=== PATIENT | female | born 1955 | race Two or more races ===

== ENCOUNTER 2018-03-16 16:30 | Emergency (ER) | payer MEDICARE, OTHER ==
[~2018-03-16] VITALS: Ht 167.6 cm; Wt 106.6 kg
[2018-03-16 16:59] VITALS: BP 118/74
[2018-03-16] MEDS ORDERED: HYDROCHLOROTHIA25 MG ORAL (17:54)
[2018-03-16 18:10] VITALS: BP 118/74
--- NOTE | 2018-03-16 18:32 | Diagnostic Imaging Report ---
EXAM: XR Chest, 1 View CLINICAL HISTORY: SOB TECHNIQUE: Frontal view of the chest. COMPARISON: No relevant prior studies available. FINDINGS: Lungs: Possible mild right infrahilar infiltrates, versus pulmonary vasculature. Pleural space: Unremarkable. No pneumothorax. Heart: Unremarkable. No cardiomegaly. Mediastinum: Unremarkable. Bones/joints: Unremarkable. IMPRESSION: Possible mild right infrahilar infiltrates, versus pulmonary vasculature.
--- NOTE | 2018-03-16 18:54 | Emergency Room Report ---
History of Present Illness General Chief Complaint: General Complaint Source: Patient Present Illness HPI Patient is a 62-year-old female presented after increased bilateral lower extremity swelling. Patient reports having swelling for approximately the last 3 days. She denies recent travel. She denies any fever. She stated swelling had gradual onset. This had not changed with rest. She denies any shortness of breath. She denied productive cough. The patient reports not currently being smoker. Allergies: Coded Allergies: CODEINE (Verified Allergy, Unknown, 03/16/18) Patient History Past Medical History: see triage record Reviewed Nursing Documentation: PMH: Agreed; PSxH: Agreed Nursing Documentation-PM Past Medical History: No History, Except For Hx Cardiac Problems: No - Sleep apnea Hx Hypertension: No Hx Pacemaker: No Hx Asthma: Yes Hx COPD: Yes Hx Diabetes: No Hx Cancer: No Hx Gastrointestinal Problems: Yes - Hepaitits C Hx Dialysis: No History Of Psychiatric Problem: No Hx Neurological Problems: No Hx Cerebrovascular Accident: No Hx Seizures: No Review of Systems All Other Systems: negative except mentioned in HPI Physical Exam Vital Signs Date Time Temp Pulse Resp B/P (MAP) Pulse Ox O2 Delivery O2 Flow Rate FiO2 03/16/18 16:45 98.1 77 16 114/74 95 Room Air 98.1 General Appearance: well appearing, no apparent distress, alert, GCS 15, obese , Chronically Ill Head: normocephalic, atraumatic ENT: hearing grossly normal, normal voice Neck: full range of motion, supple Respiratory: lungs clear, no respiratory distress, speaking full sentences Cardiovascular #1: regular rate, rhythm, edema - trace edema Gastrointestinal: normal inspection Musculoskeletal: normal inspection, back normal, no calf tenderness Neurologic: normal inspection, alert, oriented x3, responsive, account assistant III-XII nml as tested, motor strength/tone normal, normal gait Psychiatric: mood/affect normal Skin: no rash Medical Decision Making Diagnostic Impression: Primary Impression: Pedal edema ER Course Patient presented for lower extremity edema. Differential diagnosis included was not limited to dependent edema, heat edema, deep venous thrombosis, cellulitis, ankle sprain among others. Patient has a benign exam and does not appear to require any further imaging or laboratory testing at this time. The patient shows no evidence of CHF chest x-ray. The patient noted to have no shortness of breath with supine position. She was given oral Lasix return symptoms treatment. The patient appears to have dependent edema. The patient is given Hydrochlorthiazide. She is advised to follow-up with her primary care physician for further evaluation and treatment.The EKG interpreted by me showed normal sinus rhythm without acute ST or T wave changes with low voltage due to patient's obesity.The patient is advised to follow up with primary care doctor in 1-2 days. Patient is advised to return if any worsening condition or if any changes in status that are concerning. The patient is advised to discontinue diuretic if she began feeling dizzy or lightheaded. This report is dictated with [employer] software which may occasionally lead to discrepancies related to use of this software. EKG Diagnostic Results Rate: normal Rhythm: NSR ST Segments: no acute changes Last Vital Signs Date Time Temp Pulse Resp B/P (MAP) Pulse Ox O2 Delivery O2 Flow Rate FiO2 03/16/18 18:10 98.1 75 16 118/74 97 Room Air 98.1 Status: improved Disposition: HOME, SELF-CARE Condition: Stable Scripts Hydrochlorothiazide* (HYDROCHLOROTHIAZIDE*) 25 Mg Tablet 25 MG ORAL DAILY, #10 TAB Prov: Brennon Garnett MD 03/16/18 Patient Instructions: Edema Brennon Garnett MD Mar 16, 2018 18:54
--- NOTE | 2018-03-18 14:22 | Cardiology Report ---
APPROVED REPORT EKG Measurement Heart [id number] Sinus bradycardia Possible Inferior infarct, age undetermined Anterior infarct, age undetermined Abnormal ECG
== END 2018-03-16 18:24 | disposition home or self-care (01) ==
LOC: EMR 17:25
DX: R60.9 Edema, unspecified (principal); J45.909 Unspecified asthma, uncomplicated; J44.9 Chronic obstructive pulmonary disease, unspecified; Z86.19 Personal history of other infectious and parasitic diseases
CPT/HCPCS: 71045; 93005; 99283

== ENCOUNTER 2018-07-31 15:07 | Emergency (ER) | payer MEDICARE, OTHER ==
[~2018-07-31] VITALS: Ht 166.4 cm; Wt 106.6 kg
[~2018-07-31 15:07] MED LIST: HYDROCHLOROTHIA25 MG ORAL
[2018-07-31] MEDS ORDERED: NORCO 7.5-3251 EACH ORAL (15:13)
[2018-07-31] MEDS ORDERED: ZITHROMAX250 MG ORAL (15:33)
[2018-07-31] MEDS ORDERED: ALBUTEROL SULF8.5 GM INH (15:33)
[2018-07-31 15:36] VITALS: BP 133/82
--- NOTE | 2018-07-31 15:37 | Emergency Room Report ---
History of Present Illness General Chief Complaint: Upper Respiratory Illness Source: Patient, Medical Record Present Illness HPI Jeri presents emergency department today complaining cough congestion. Patient is a smoker. Symptoms have been going on for 2 weeks. Patient complains of subjective fevers and chills. Patient denies any shortness of breath. Patient denies any chest pain leg pain leg swelling. No other complaint or noted. Patient states that usually when it gets this bad she needs a Z-Dandy.No other modifying factors. No other associated signs and symptoms. No other complaints were noted. Allergies: Coded Allergies: CODEINE (Verified Allergy, Unknown, 03/16/18) Patient History Past Medical History: asthma, COPD Past Surgical History: none Pertinent Family History: none Social History: Reports: smoking Last Menstrual Period: menopause Reviewed Nursing Documentation: PMH: Agreed; PSxH: Agreed Nursing Documentation-PMH Past Medical History: No History, Except For Hx Cardiac Problems: No - Sleep apnea Hx Hypertension: No Hx Pacemaker: No Hx Asthma: Yes Hx COPD: Yes Hx Diabetes: No Hx Cancer: No Hx Gastrointestinal Problems: Yes - Hepaitits C Hx Dialysis: No Hx Neurological Problems: No Hx Cerebrovascular Accident: No Hx Seizures: No Review of Systems All Other Systems: negative except mentioned in HPI Physical Exam Vital Signs Date Time Temp Pulse Resp B/P (MAP) Pulse Ox O2 Delivery O2 Flow Rate FiO2 07/31/18 15:09 98.1 68 18 135/76 96 Room Air Sp02 EP Interpretation: reviewed, normal General Appearance: normal inspection, well appearing, no apparent distress, alert Head: atraumatic Eyes: bilateral eye normal inspection ENT: normal ENT inspection, hearing grossly normal, normal voice Neck: normal inspection, full range of motion, supple, no bony tend Respiratory: normal inspection, lungs clear, normal breath sounds, no respiratory distress, no retraction, no wheezing Cardiovascular #1: regular rate, rhythm, no edema Gastrointestinal: normal inspection, normal bowel sounds, non tender, soft, no guarding, no hernia Genitourinary: no CVA tenderness Musculoskeletal: normal inspection, back normal, normal range of motion Neurologic: normal inspection, alert, responsive, speech normal Psychiatric: normal inspection, judgement/insight normal, mood/affect normal Skin: normal inspection, normal color, no rash Medical Decision Making Diagnostic Impression: Primary Impression: Cough ER Course Patient present to the Emergency Department today complaining of cough and congestion. Differential considerations include pneumonia bronchitis, asthma, COPD just to name a few.Patient exam is fairly benign. I felt the symptoms are consistent with infection.. I felt the patient benefit from antibiotics. Patient was also given the inhaler.Patient is advised to follow up with primary doctor in 2-3 days and return the emergency room for any worsening symptoms and as needed. Chest X-Ray Diagnostic Results Chest X-Ray Diagnostic Results : Chest X-Ray Ordered: Yes # of Views/Limited/Complete: 1 View Indication: Other - Cough EP Interpretation: Yes Interpretation: no consolidation, no effusion, no pneumothorax, no acute cardiopulmonary disease Impression: No acute disease Electronically Signed by: Electronically signed by Edgar Nguyen MD Last Vital Signs Date Time Temp Pulse Resp B/P (MAP) Pulse Ox O2 Delivery O2 Flow Rate FiO2 07/31/18 15:19 68 18 Room Air 07/31/18 15:09 98.1 135/76 96 Status: improved Disposition: HOME, SELF-CARE Condition: Stable Scripts Azithromycin* (ZITHROMAX*) 250 Mg Tablet 250 MG ORAL DAILY, #6 TAB 0 Refills Take two tables once daily for 1 day, then one tablet once daily for 4 days. Prov: Edgar Nguyen MD 07/31/18 Albuterol Sulfate* (ALBUTEROL SULFATE MDI*) 8.5 Gm Hfa.aer.ad 2 PUFF INH Q4H PRN for cough/wheezing, #1 EA 0 Refills Prov: Edgar Nguyen MD 07/31/18 Patient Instructions: Bronchospasm, Adult Edgar Nguyen MD Jul 31, 2018 15:37
--- NOTE | 2018-07-31 16:16 | Diagnostic Imaging Report ---
Indication: Cough Technique: One view of the chest Comparison: 03/16/2018 Findings: Lungs and pleural spaces are clear. Heart size is normal the aorta is tortuous and calcified. No significant interim change Impression: No acute process This agrees with the preliminary interpretation provided by the emergency room physician
== END 2018-07-31 15:45 | disposition home or self-care (01) ==
LOC: EMR 15:42
DX: R05 Cough (principal); J44.9 Chronic obstructive pulmonary disease, unspecified; B19.20 Unspecified viral hepatitis C without hepatic coma
CPT/HCPCS: 71045; 99283

== ENCOUNTER 2018-10-01 20:58 | Emergency (ER) | payer MEDICARE, OTHER ==
[~2018-10-01] VITALS: Ht 165.1 cm; Wt 111.1 kg
[~2018-10-01 20:58] MED LIST changes: +ALBUTEROL SULF8.5 GM INH; +NORCO 7.5-3251 EACH ORAL; +ZITHROMAX250 MG ORAL
[2018-10-01] MEDS ORDERED: LEVAQUIN500 MG ORAL (21:04)
--- NOTE | 2018-10-01 21:15 | NUR ---
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
--- NOTE | 2018-10-01 21:23 | Emergency Room Report ---
History of Present Illness General Chief Complaint: Flu Like Symptoms Source: Patient Present Illness HPI This is a 63-year-old female with a history of COPD. She presents with chief complaint of cough and chest pain. Onset for about a week now. She had flulike illness about 10 days ago. She said they got better but since then she' s been coughing. Worse on the right side. Worse with coughing and inspiration. Coughing is productive of whitish sputum. No fever or chills. No nausea no vomiting. Pain is sharp in nature. 8 out of 10. Unable to smoke in the last few days. Allergies: Coded Allergies: CODEINE (Verified Allergy, Unknown, 03/16/18) Patient History Past Medical History: see triage record, old chart reviewed, asthma, COPD Past Surgical History: other Pertinent Family History: none Social History: Reports: smoking Now: No Immunizations: other Reviewed Nursing Documentation: PMH: Agreed; PSxH: Agreed Nursing Documentation-PMH Past Medical History: No History, Except For Hx Cardiac Problems: No - Sleep apnea Hx Hypertension: No Hx Pacemaker: No Hx Asthma: Yes Hx COPD: Yes Hx Diabetes: No Hx Cancer: No Hx Gastrointestinal Problems: Yes - Hepaitits C Hx Dialysis: No Hx Neurological Problems: No Hx Cerebrovascular Accident: No Hx Seizures: No Review of Systems Eye: Denies: eye pain, blurred vision ENT: Denies: ear pain, nose congestion, throat swelling Respiratory: Reports: cough, shortness of breath Cardiovascular: Reports: chest pain; Denies: palpitations Gastrointestinal: Denies: abdominal pain, diarrhea, nausea, vomiting Musculoskeletal: Denies: back pain, joint pain Skin: Denies: rash Neurological: Denies: headache, numbness Endocrine: Denies: increased thirst, increased urine Hematologic/Lymphatic: Denies: easy bruising All Other Systems: negative except mentioned in HPI Physical Exam Vital Signs Date Time Temp Pulse Resp B/P (MAP) Pulse Ox O2 Delivery O2 Flow Rate FiO2 10/01/18 20:59 98.2 70 20 129/72 95 Room Air vitals normal Sp02 EP Interpretation: reviewed, normal General Appearance: well appearing, no apparent distress, alert Head: normocephalic, atraumatic Eyes: bilateral eye PERRL, bilateral eye EOMI ENT: hearing grossly normal, normal pharynx Neck: full range of motion, supple, no meningismus Respiratory: chest non-tender, rhonchi, wheezing Cardiovascular #1: regular rate, rhythm, no murmur Gastrointestinal: normal bowel sounds, non tender, no mass, no organomegaly, no bruit, non-distended Musculoskeletal: back normal, gait/station normal, normal range of motion Psychiatric: mood/affect normal Skin: warm/dry Medical Decision Making Diagnostic Impression: Primary Impression: COPD exacerbation Additional Impression: Atypical pneumonia ER Course Patient presents with cough. She did have some wheezing and rhonchi that resolved with breathing treatment. Chest x-ray unremarkable. Symptom been ongoing for 10 days. Because of her risk factor, will put her on antibiotics. No evidence of ACS, PE, dissection to name a few. Rhythm Strip Diag. Results EP Interpretation: yes Rate: 81 Rhythm: NSR, no PVC's, no ectopy Chest X-Ray Diagnostic Results Chest X-Ray Diagnostic Results : Chest X-Ray Ordered: Yes # of Views/Limited/Complete: 1 View Indication: Chest Pain EP Interpretation: Yes Interpretation: no consolidation, no effusion, no pneumothorax, no acute cardiopulmonary disease Impression: No acute disease Electronically Signed by: Theo Mckeon MD Last Vital Signs Date Time Temp Pulse Resp B/P (MAP) Pulse Ox O2 Delivery O2 Flow Rate FiO2 10/01/18 20:59 98.2 70 20 129/72 95 Room Air Status: improved Disposition: HOME, SELF-CARE Condition: Stable Scripts Prednisone* (PREDNISONE*) 20 Mg Tablet 40 MG ORAL DAILY, #8 TAB Prov: Theo Mckeon MD 10/01/18 Azithromycin* (ZITHROMAX*) 250 Mg Tablet 250 MG ORAL DAILY, #6 TAB 0 Refills Take two tables once daily for 1 day, then one tablet once daily for 4 days. Prov: Theo Mckeon MD 10/01/18 Additional Instructions: Stop smoking. Follow-up with your doctor in 7 days. Return if worse. Theo Mckeon MD Oct 01, 2018 21:23
[2018-10-01] MEDS ORDERED: Albuterol/Ipratropium 3ml neb HHN ONE (21:30)
[2018-10-01] MEDS ORDERED: PREDNISONE20 MG ORAL (22:08)
[2018-10-01] MEDS ORDERED: ZITHROMAX250 MG ORAL (22:08)
[2018-10-01 22:15] VITALS: BP 141/77
--- NOTE | 2018-10-01 22:30 | NUR ---
ED Nurse Note: pt completed breathing treatments, tolerated well and states feels much better, pt respiratory rate better with less effort, o2 sat=97% on ra, pt tolerating oral fluids well also, pt is being d/c to home, pt given f/u info, after care instructions and re-verbalizes proper medication administration and s/s to continue to monitor for, nad noted during d/c to home, pt armband removed.
[2018-10-01 22:35] VITALS: BP 141/77
--- NOTE | 2018-10-02 09:04 | Diagnostic Imaging Report ---
Indication: Shortness of breath Technique: One view of the chest Comparison: 07/31/2018 Findings: Inspiration is suboptimal. The lungs and pleural spaces are clear. Heart size is upper limits of normal. There are degenerative changes of the right shoulder. No significant interim change Impression: No acute process
== END 2018-10-01 22:35 | disposition home or self-care (01) ==
LOC: EMR 21:10
DX: J44.1 Chronic obstructive pulmonary disease with (acute) exacerbation (principal); J18.9 Pneumonia, unspecified organism; F17.200 Nicotine dependence, unspecified, uncomplicated; Z88.5 Allergy status to narcotic agent; Z86.19 Personal history of other infectious and parasitic diseases
CPT/HCPCS: 71045; 94640; 94664; 99284; J7512; J7620

== ENCOUNTER 2018-11-15 19:58 | Emergency (ER) | payer MEDICARE, OTHER ==
[~2018-11-15] VITALS: Ht 167.6 cm; Wt 111.1 kg
[~2018-11-15 19:58] MED LIST changes: +LEVAQUIN500 MG ORAL; +PREDNISONE20 MG ORAL
[2018-11-15 20:09] VITALS: BP 144/78
--- NOTE | 2018-11-15 20:09 | NUR ---
ED Nurse Note: Walk in patient presents with complaints of left knee, right pinky and anterior face pain due to fall.
[2018-11-15] MEDS ORDERED: NEURONTIN300 MG ORAL (20:12)
[2018-11-15] MEDS ORDERED: NORCO 5-325 TA1 EACH ORAL (20:13)
--- NOTE | 2018-11-15 20:28 | Emergency Room Report ---
History of Present Illness General Chief Complaint: Multiple Trauma/Fall Source: Patient Present Illness HPI 63-year-old female with COPD presenting with right pinky pain as well as left knee pain. She says that her knee buckled so she ran into the wall. She has now a swollen lip as well as a cut in the inner lip. Did not lose consciousness no headache no blurry vision at this time. Complaining of right pinky pain as well as left knee pain. Was able to ambulate here. No other complaints at this time Allergies: Coded Allergies: CODEINE (Verified Allergy, Unknown, 03/16/18) Patient History Past Medical History: see triage record Past Surgical History: none Pertinent Family History: none Last Menstrual Period: SHANIQUA Now: No Reviewed Nursing Documentation: PMH: Agreed; PSxH: Agreed Nursing Documentation-PMH Past Medical History: No History, Except For Hx Cardiac Problems: No - Sleep apnea Hx Hypertension: No Hx Pacemaker: No Hx Asthma: Yes Hx COPD: Yes Hx Diabetes: No Hx Cancer: No Hx Gastrointestinal Problems: Yes - Hepaitits C, RA Hx Dialysis: No Hx Neurological Problems: No Hx Cerebrovascular Accident: No Hx Seizures: No Review of Systems All Other Systems: negative except mentioned in HPI Physical Exam Vital Signs Date Time Temp Pulse Resp B/P (MAP) Pulse Ox O2 Delivery O2 Flow Rate FiO2 11/15/18 20:09 97.5 74 18 144/78 94 Room Air Sp02 EP Interpretation: reviewed, normal General Appearance: alert, GCS 15, non-toxic, mild distress Head: normocephalic, atraumatic Eyes: bilateral eye normal inspection, bilateral eye PERRL, bilateral eye EOMI ENT: other - Swollen left bottom lip with inner lip abrasion no active bleeding. No septal hematoma and no epistaxis Neck: normal inspection, full range of motion, supple Respiratory: normal inspection, lungs clear, normal breath sounds, no respiratory distress, no retraction, no wheezing, speaking full sentences, chest symmetrical Cardiovascular #1: normal inspection, regular rate, rhythm, no edema, normal capillary refill Cardiovascular #2: 2+ radial (R), 2+ radial (L) Gastrointestinal: normal inspection, non tender, soft, non-distended, no guarding Musculoskeletal: other - Left knee generalized tenderness but full range of motion, right fifth digit tender palpation at that PIP joint with slight abrasion noted on the dorsal aspect. Neurologic: normal inspection, alert, oriented x3, responsive, motor strength/ tone normal, sensory intact, normal gait, speech normal Psychiatric: normal inspection, judgement/insight normal, memory normal Skin: normal inspection, normal color, no rash, warm/dry, well hydrated, normal turgor Medical Decision Making Diagnostic Impression: Primary Impression: Lip abrasion Additional Impressions: Knee contusion Finger contusion ER Course 63-year-old female knee buckled ran into the wall DDX: Contusion versus fracture of left knee as well as right pinky. Also has a inner lip abrasion and swollen lip. No need to perform CT head at this time there is no loss of consciousness she is awake and alert GCS 15 Plan: XR ER course: Patient reports improvement of pain Disposition: Patient is to be discharged home Patient instructed to follow up with orthopedic surgery in 1 week (also to follow up on finding on knee XRAY, does not appear to be anything acute) Patient educated to rest, ice, and elevate extremity and to avoid vigorous activity. Strict precautions discussed with patient on when to return to the emergency room including increased redness or swelling joints, increased pain/swelling of extremity, fever or chills, which could indicate severe illness. Patient is to follow up with their primary care doctor within 5 days. Please note that this Emergency Department Report was dictated using [employer] software, occasionally this can lead to erroneous entry secondary to interpretation by the dictation equipment. Xray ordered: Left knee 3 view Indication: Pain EP Interpretation: Yes Interpretation: area of lucency distal femur, unsure what this is, appears chronic, no acute fx or effusion Impression: area of lucency distal femur, unsure what this is, appears chronic, no acute fx or effusion Electronically signed by Mg Manzanares MD Xray: Right hand Complete Indication: Pain EP Interpretation: Yes Interpretation: No dislocation, no soft tissue swelling, no fractures Impression: No acute disease Electronically signed by Mg Manzanares MD Last Vital Signs Date Time Temp Pulse Resp B/P (MAP) Pulse Ox O2 Delivery O2 Flow Rate FiO2 11/15/18 20:09 97.5 74 18 144/78 94 Room Air Disposition: HOME, SELF-CARE Condition: Stable Mg Manzanares M.D. Nov 15, 2018 20:28
[2018-11-15] MEDS ORDERED: HYDROcodone/Acetamin 5/325 tab ORAL ONE (20:30)
[2018-11-15] MEDS ORDERED: Tetanus/Diptheria/Pertussis Vaccine 0.5ml Syr IM ONE (20:30)
--- NOTE | 2018-11-15 20:54 | NUR ---
ED Nurse Note: Patient is currently undergoing x rays.
--- NOTE | 2018-11-15 21:06 | NUR ---
ED Nurse Note: Patient awaiting results of xray.
[2018-11-15 21:19] VITALS: BP 144/78
--- NOTE | 2018-11-15 21:19 | NUR ---
ED Nurse Note: Patient cleared for discharge by ERMD, patient ambulatory with steady gait, A&Ox4 ID band removed. patient verbalized understanding of discharge instructions, departed with all belongings.
--- NOTE | 2018-11-16 18:03 | Diagnostic Imaging Report ---
Indication: Right hand pain, trauma Technique: 3 views right hand Comparison: none Findings: There is markedly unusual appearance of the wrist, with apparent fusion of the distal radius, scaphoid, and lunate. 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 No acute fractures. No dislocations. The joint spaces are preserved. Impression: No definite acute bony trauma Unusual appearance to the wrist as described-correlate with clinical and surgical history
--- NOTE | 2018-11-16 18:05 | Diagnostic Imaging Report ---
Indication: Left knee pain Technique: 3 views of the left knee Comparison: None Findings: There is severe degenerative narrowing of the medial joint compartment. The lateral joint compartment is preserved. There is degenerative change of the patellofemoral joint compartment as well as patellar osteophytes. Old hardware hole is seen in the distal femur. No acute fractures. No dislocations. Impression: Degenerative and postsurgical changes, as described No acute bony trauma
== END 2018-11-15 21:19 | disposition home or self-care (01) ==
LOC: EMR 20:29
DX: S00.511A Abrasion of lip, initial encounter (principal); S60.051A Contusion of right little finger without damage to nail, initial encounter; S80.02XA Contusion of left knee, initial encounter; W22.01XA Walked into wall, initial encounter; Y93.02 Activity, running; Y92.89 Other specified places as the place of occurrence of the external cause; Z23 Encounter for immunization; J44.9 Chronic obstructive pulmonary disease, unspecified; G47.30 Sleep apnea, unspecified
CPT/HCPCS: 90471; 90715; 99284

== ENCOUNTER 2019-01-11 12:54 | Emergency (ER) | payer MEDICARE, OTHER ==
[~2019-01-11] VITALS: Ht 165.1 cm; Wt 108.9 kg
[~2019-01-11 12:54] MED LIST changes: +IBUPROFEN600 MG ORAL; +NEURONTIN300 MG ORAL; +NORCO 5-325 TA1 EACH ORAL
[2019-01-11] MEDS ORDERED: NKM (13:07)
--- NOTE | 2019-01-11 13:09 | NUR ---
ED Nurse Note: pt walked in c/o left wrist pain, pt reports she was here last monday and was supposed to follow up with ortho but hasn't been able to see event lighting specialist till next mon and reports she's been having increase in pain and swelling. noted left hand swelling. cms intact and cap refill <3sec noted, will cont monitor.
[2019-01-11 13:11] VITALS: BP 120/83
--- NOTE | 2019-01-11 13:23 | Emergency Room Report ---
History of Present Illness General Chief Complaint: Pain Source: Patient Present Illness HPI Patient is a 63-year-old female presented after increased swelling to her left hand. Patient had recent fall and was diagnosed with a left distal radius fracture. Patient had been placed in a preformed Colles' splint. Patient reported having some throbbing pain. She was noted to have increased swelling to her hand and fingers. She denies any loss of function or numbness. She had prior history of COPD. Patient is right-hand dominant. She had prior right hand surgery and has had multiple orthopedic surgeries in the past. Allergies: Coded Allergies: CODEINE (Verified Allergy, Unknown, 01/11/19) Patient History Past Medical History: see triage record, COPD Last Menstrual Period: 12 YEARS AGO Now: No Reviewed Nursing Documentation: PMH: Agreed; PSxH: Agreed Nursing Documentation-PMH Past Medical History: No History, Except For Hx Cardiac Problems: No - Sleep apnea Hx Hypertension: No Hx Pacemaker: No Hx Asthma: Yes - Bronchitis Hx COPD: Yes Hx Diabetes: No Hx Cancer: No Hx Gastrointestinal Problems: Yes - Hepaitits C, Rheumatoid Arthritis Hx Dialysis: No Hx Neurological Problems: No Hx Cerebrovascular Accident: No Hx Seizures: No Review of Systems All Other Systems: negative except mentioned in HPI Physical Exam Vital Signs Date Time Temp Pulse Resp B/P (MAP) Pulse Ox O2 Delivery O2 Flow Rate FiO2 01/11/19 13:02 98.8 82 18 120/83 (95) 95 Room Air Sp02 EP Interpretation: reviewed, normal General Appearance: normal inspection, well appearing, no apparent distress, alert, GCS 15, obese Head: atraumatic ENT: normal ENT inspection, hearing grossly normal, normal voice Neck: normal inspection, full range of motion, supple, no bony tend Respiratory: normal inspection, lungs clear, normal breath sounds, no respiratory distress, no retraction, no wheezing Cardiovascular #1: regular rate, rhythm, no edema Gastrointestinal: normal inspection, normal bowel sounds, non tender, soft, no guarding, no hernia Genitourinary: no CVA tenderness Musculoskeletal: normal inspection, back normal, swelling - swelling to hand distal to spint wrapping Neurologic: normal inspection, alert, oriented x3, 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 Differential diagnosis include was not limited to tourniquet syndrome, dependent edema, anasarca among others. Patient has a benign exam and does not appear to require any further imaging or laboratory testing at this time. Patient was noted to have a recent x-ray imaging which showed evidence of fracture. Patient does not have any new neurologic deficit to suggest vascular compromise. Patient's wrap appears to be slightly compressing the area proximal to the area of swelling. Patient's splint was removed and replaced with a sugar tong splint. Patient was advised to follow-up with her orthopedic appointment as previously scheduled. Last Vital Signs Date Time Temp Pulse Resp B/P (MAP) Pulse Ox O2 Delivery O2 Flow Rate FiO2 01/11/19 13:11 98.8 80 18 120/83 95 Room Air Status: improved Disposition: HOME, SELF-CARE Condition: Stable Brennon Garnett MD January 11, 2019 13:23
[2019-01-11 13:42] VITALS: BP 120/83
--- NOTE | 2019-01-11 13:42 | NUR ---
ER DISCHARGE NOTE: Patient is cleared to be discharged per ERMD, pt is aox4, on room air, with stable vital signs. pt was given dc and prescription instructions, pt was able to verbalize understanding, pt id band removed without complications. pt is able to ambulate with steady gait. pt took all belongings.
== END 2019-01-11 13:42 | disposition home or self-care (01) ==
LOC: EMR 13:18
DX: S52.502A Unspecified fracture of the lower end of left radius, initial encounter for closed fracture (principal); X58.XXXA Exposure to other specified factors, initial encounter; Y92.9 Unspecified place or not applicable; J44.9 Chronic obstructive pulmonary disease, unspecified; M06.9 Rheumatoid arthritis, unspecified; B19.20 Unspecified viral hepatitis C without hepatic coma; G47.30 Sleep apnea, unspecified; Z88.5 Allergy status to narcotic agent
CPT/HCPCS: 29125; 99282

== ENCOUNTER 2019-03-24 19:45 | Emergency (ER) | payer MEDICARE, OTHER ==
[~2019-03-24] VITALS: Ht 165.1 cm; Wt 111.1 kg
[~2019-03-24 19:45] MED LIST changes: +NKM
[2019-03-24 19:55] VITALS: BP 132/92
--- NOTE | 2019-03-24 19:55 | NUR ---
ED Nurse Note: Patient walked into ED c/o left foot pain, states that she struck a bed frame with her left foot and is complaining of 10/10 pain, patient presents with a swollen foot. able to walk on it, describes her pain as a sharp pain. patient denies any SOB nor any cardiac issues. will wait for further orders
[2019-03-24] MEDS ORDERED: HYDROcodone/Acetamin 7.5/325 tab ORAL ONE (20:30)
--- NOTE | 2019-03-24 20:44 | Emergency Room Report ---
History of Present Illness General Chief Complaint: Pain Source: Patient, Medical Record Present Illness HPI 63 YO female c/o LLE swelling and 10/10 in severity left lower extremity pain x 1 month. s/p banging her foot on a metal bed frame last month. pt reports pain worse with palpation and ambulation. She takes Cadillac regularly for chronic pain but this has not provided her with adequate relief. She c/o progressive swelling x 3 days. She is a current smoker, denies recent travel, fevers, or chills. denies open wounds, erythema, warmth or bleeding. pt. reports pain from calf down to mid left foot. Denies numbness tingling or loss of sensation or gross motor movements of the extremities, incontinence of bowel or bladder. Denies CP, Palpitations, LOC, AMS, dizziness, Changes in Vision, weakness or a sudden severe headache. Allergies: Coded Allergies: CODEINE (Verified Allergy, Unknown, 01/11/19) Patient History Past Medical History: see triage record Past Surgical History: none Pertinent Family History: none Reviewed Nursing Documentation: PMH: Agreed; PSxH: Agreed Nursing Documentation-PMH Hx Cardiac Problems: No - Sleep apnea Hx Hypertension: No Hx Pacemaker: No Hx Asthma: Yes - Bronchitis Hx COPD: Yes Hx Diabetes: No Hx Cancer: No Hx Gastrointestinal Problems: Yes - Hepaitits C, Rheumatoid Arthritis Hx Dialysis: No Hx Neurological Problems: No Hx Cerebrovascular Accident: No Hx Seizures: No Review of Systems All Other Systems: negative except mentioned in HPI Physical Exam Vital Signs Date Time Temp Pulse Resp B/P (MAP) Pulse Ox O2 Delivery O2 Flow Rate FiO2 03/24/19 19:54 98.4 83 18 132/92 (105) 96 Sp02 EP Interpretation: reviewed, normal General Appearance: no apparent distress, alert, GCS 15, non-toxic, obese Head: normocephalic, atraumatic Eyes: bilateral eye normal inspection, bilateral eye PERRL ENT: hearing grossly normal, normal voice Neck: full range of motion Respiratory: chest non-tender, lungs clear, normal breath sounds, no wheezing, speaking full sentences Cardiovascular #1: regular rate, rhythm, normal capillary refill, edema - left calf and left foot, non-pitting 2+ Cardiovascular #2: 2+ dorsalis pedis (R), 2+ dorsalis pedis (L) Musculoskeletal: back normal, gait/station normal, normal range of motion, tender - distal left calf, and dorsolateral left foot. NVI. pain to light touch , no erythema, no bruises. Neurologic: alert, oriented x3, responsive, motor strength/tone normal, sensory intact, speech normal, grossly normal Psychiatric: judgement/insight normal Lymphatic: no adenopathy Medical Decision Making PA Attestation Dr. Garnett is my supervising Physician whom patient management has been discussed with. Diagnostic Impression: Primary Impression: Bilateral edema of lower extremity Additional Impression: PAIN IN LEFT FOOT ER Course 63 YO female c/o LLE swelling and 10/10 in severity left lower extremity pain x 1 month. s/p banging her foot on a metal bed frame last month. pt reports pain worse with palpation and ambulation. She takes Cadillac regularly for chronic pain but this has not provided her with adequate relief. She c/o progressive swelling x 3 days. She is a current smoker, denies recent travel, fevers, or chills. denies open wounds, erythema, warmth or bleeding. pt. reports pain from calf down to mid left foot. Denies numbness tingling or loss of sensation or gross motor movements of the extremities, incontinence of bowel or bladder. Denies CP, Palpitations, LOC, AMS, dizziness, Changes in Vision, weakness or a sudden severe headache. Ddx considered but are not limited to Cellulitis, DVT, varicose vein, PAD, Venous insufficiency, MSK injury, Peripheral edema just to name a few. Vital signs: are WNL, pt. is afebrile H&PE are most consistent with Unilateral peripheral edema will r/o DVT, no evidence of acute infection. Will also do imaging to r/o fractures. ORDERS: - X-ray Left foot 3 views: WNL -US Left Lower Extremity - Venous Duplex- R/O DVT: Negative ED INTERVENTIONS: -Cadillac PO -I do not identify an emergent condition at this time. With current presentation , pt. is stable for close outpatient follow up and conservative treatment. D/ w pt. to return promptly to ED with worsening or new symptoms.- Pt. verbalizes' understanding and agreement with proposed treatment plan.proposed treatment plan. DISCHARGE: At this time pt. is stable for d/c to home. Will provide printed patient care instructions, and any necessary prescriptions. Care plan and follow up instructions have been discussed with the patient prior to discharge. Other X-Ray Diagnostic Results Other X-Ray Diagnostic Results : X-Ray ordered: Left Foot # of Views/Limited Vs Complete: 3 View Indication: Swelling EP Interpretation: Yes PA Xray: Interpretation reviewed, by supervising MD, and agrees with findings. Interpretation: no dislocation, no soft tissue swelling, no fractures Impression: No acute disease Electronically Signed by: Edith Ramirez PA-C CT/MRI/US Diagnostic Results CT/MRI/US Diagnostic Results : Imaging Test Ordered: Venous Duplex Left Lower Extremity Impression Negative for DVT. Last Vital Signs Date Time Temp Pulse Resp B/P (MAP) Pulse Ox O2 Delivery O2 Flow Rate FiO2 03/24/19 19:54 98.4 83 18 132/92 (105) 96 Status: improved Disposition: HOME, SELF-CARE Scripts Ibuprofen* (MOTRIN*) 600 Mg Tablet 600 MG ORAL THREE TIMES A DAY, #15 TAB 0 Refills Prov: Edith Raimrez 03/24/19 Patient Instructions: Medical Screening Exam, Peripheral Edema Additional Instructions: Take medications as directed. ~ ~ An emergent medical condition has not been identified based on this patients presentation, exam and any necessary testing/imaging. The patient is determined to be stable for outpatient follow-up and management of symptoms by a primary care provider. Follow up with a Primary Care Provider in 3-5 days, even if your symptoms have resolved. Return sooner to ED if new symptoms occur, or current symptoms become worse. Do not drink alcohol, drive, or operate heavy machinery while taking your previously prescribed Cadillac 7.5mg as this may cause drowsiness. - Please note that this Emergency Department Report was dictated using [employer] transcription technology software, occasionally this can lead to erroneous entry secondary to interpretation by the dictation equipment. Edith Ramirez Mar 24, 2019 20:44
[2019-03-24] MEDS ORDERED: IBUPROFEN600 MG ORAL (21:29)
[2019-03-24 21:45] VITALS: BP 125/88
--- NOTE | 2019-03-24 21:45 | NUR ---
ER DISCHARGE NOTE: Patient is cleared to be discharged per ERMD, pt is aox4, on room air, with stable vital signs. pt was given dc and prescription instructions, pt was able to verbalize understanding, pt id band removed without complications. pt is able to ambulate with steady gait. pt took all belongings. PAtient was placed an quique wrap on left foot
--- NOTE | 2019-03-24 21:46 | Diagnostic Imaging Report ---
US VENOUS LEFT LOWER EXTREMITY: No evidence of deep vein thrombosis.
--- NOTE | 2019-03-25 12:47 | Diagnostic Imaging Report ---
Indication: left ankle pain Comparison: None Findings: 3 views of the left ankle obtained. There is generalized soft tissue swelling. No acute fracture, malalignment, periostitis, or osteochondral defects are identified. Impression: No acute findings
== END 2019-03-24 21:45 | disposition home or self-care (01) ==
LOC: EMR 20:30
DX: M79.672 Pain in left foot (principal); R60.0 Localized edema; J44.9 Chronic obstructive pulmonary disease, unspecified; G47.30 Sleep apnea, unspecified; B19.20 Unspecified viral hepatitis C without hepatic coma; M06.9 Rheumatoid arthritis, unspecified; Z88.6 Allergy status to analgesic agent; G89.29 Other chronic pain
CPT/HCPCS: 93971; 99284

== ENCOUNTER 2019-07-07 14:54 | Emergency (ER) | payer MEDICARE, OTHER ==
[~2019-07-07] VITALS: Ht 165.1 cm; Wt 106.6 kg
[2019-07-07 15:08] VITALS: BP 132/82
[2019-07-07] MEDS ORDERED: Ketorolac 60mg Inj IM ONE (15:15)
[2019-07-07] MEDS ORDERED: AZITHROMYCIN500 MG ORAL (15:17)
[2019-07-07] MEDS ORDERED: MELOXICAM15 MG PO (15:17)
[2019-07-07] MEDS ORDERED: AMOXICILLIN125 MG ORAL (15:17)
[2019-07-07] MEDS ORDERED: GABAPENTIN100 MG ORAL (15:17)
[2019-07-07] MEDS ORDERED: NORCO 7.5-3251 EACH ORAL (15:17)
--- NOTE | 2019-07-07 15:23 | Emergency Room Report ---
History of Present Illness General Chief Complaint: Back Pain-No Injury Source: Patient Present Illness HPI The patient presents with 3 days of worsening back pain. She had spinal fusion in 2003 and states that she her back is never hurt this severely since that time. She had changed her mattress before that. She is changed it back again. She has episodes where her muscles tighten up and the pain radiates to her gluteal area. She uses a cane even when she does not have pain. She drove herself here. The pain is rated 10/10 and sharp, burning and aching. She denies any fevers, chills, incontinence, numbness, blood thinners no IV drug use. Today she took Stanford and gabapentin and had no relief. the patient fell 3 to 4 months ago. She is still undergoing physical therapy. Injury was to her wrist not her lower back. No chest pain, palpitations, nausea, vomiting, diarrhea, dysuria, abdominal pain , shortness of breath, rashes, depression, anxiety, visual changes, dizziness, headache. She was seen in March for pedal edema. Allergies: Coded Allergies: CODEINE (Verified Allergy, Unknown, 01/11/19) Patient History Past Medical History: see triage record Past Surgical History: other - fusion spine 2003 Social History: Reports: smoking Social History Narrative drove herself here Reviewed Nursing Documentation: PMH: Agreed; PSxH: Agreed Nursing Documentation-PMH Past Medical History: No History, Except For Hx Cardiac Problems: No - Sleep apnea Hx Hypertension: No Hx Pacemaker: No Hx Asthma: Yes - Bronchitis Hx COPD: Yes Hx Diabetes: No Hx Cancer: No Hx Gastrointestinal Problems: Yes - Hepaitits C, Rheumatoid Arthritis Hx Dialysis: No Hx Neurological Problems: No - SPINAL SURGERY 2003 Hx Cerebrovascular Accident: No Hx Seizures: No Review of Systems All Other Systems: negative except mentioned in HPI Physical Exam Vital Signs Date Time Temp Pulse Resp B/P (MAP) Pulse Ox O2 Delivery O2 Flow Rate FiO2 07/07/19 14:59 98.2 75 18 125/80 (95) 95 Room Air Sp02 EP Interpretation: reviewed, normal General Appearance: well appearing, no apparent distress - Episodic spasms of pain pain, GCS 15 Head: normocephalic Eyes: bilateral eye normal inspection, bilateral eye PERRL, bilateral eye EOMI ENT: moist mucus membranes Neck: full range of motion, supple, no bony tend Respiratory: chest non-tender, lungs clear, normal breath sounds Cardiovascular #1: regular rate, rhythm, edema - Trace bilaterally Cardiovascular #2: 2+ radial (L), 2+ dorsalis pedis (R), 2+ dorsalis pedis (L) Gastrointestinal: normal inspection, non tender, soft, overweight Genitourinary: no CVA tenderness Musculoskeletal: tenderness - lumbar area, decreased range of mation - SLR R + for back spasms Neurologic: alert, motor strength/tone normal, DTRs symmetric, oriented x3, sensory intact Psychiatric: mood/affect normal Reflexes: 2+ knee (R), 2+ knee (L); 1+ ankle (R), 1+ ankle (L) Skin: normal color, other - venous disease Medical Decision Making Diagnostic Impression: Primary Impression: Back pain Qualified Codes: M54.5 - Low back pain Additional Impression: Muscle spasm ER Course Patient presents with exacerbation of lumbar pain. Differential includes muscle spasm, UTI, strain and exacerbation of chronic pain amongst others. There are no red flag symptoms or signs at this time. Urinalysis is indicated. Patient is requesting lumbar spine films and based on the acuity pain lumbar spine films are ordered. The patient drove herself here and will receive a shot of Toradol and a Soma tablet. Lumbar film with possible interruption of right fusion bar. Urinalysis unremarkable. Patient improved with treatment. Ambulatory and with less difficulty changing position in her lower back. Discussed findings with patient. Given x-rays. Advised to follow-up with her physician. She also has a pain specialist. She has more Stanford at home. Patient stable for outpatient observation and treatment. Laboratory Tests Test 07/07/19 15:25 Urine Color Yellow Urine Appearance Slightly cloudy Urine pH 6 (4.5-8.0) Urine Specific [place] 1.020 (1.005-1.035) Urine Protein Negative (NEGATIVE) Urine Glucose (UA) Negative (NEGATIVE) Urine Ketones 1+ (NEGATIVE) H Urine Blood Negative (NEGATIVE) Urine Nitrite Negative (NEGATIVE) Urine Bilirubin Negative (NEGATIVE) Urine Urobilinogen 4 MG/DL (0.0-1.0) H Urine Leukocyte Esterase 1+ (NEGATIVE) H Urine RBC 0-2 /HPF (0 - 2) Urine WBC 2-4 /HPF (0 - 2) Urine Squamous Epithelial Cells Many /LPF (NONE/OCC) H Urine Bacteria Occasional /HPF (NONE) Urine Opiates Screen Positive (NEGATIVE) H Urine Barbiturates Screen Negative (NEGATIVE) Phencyclidine (PCP) Screen Negative (NEGATIVE) Urine Amphetamines Screen Negative (NEGATIVE) Urine Benzodiazepines Screen Negative (NEGATIVE) Urine Cocaine Screen Negative (NEGATIVE) Urine Marijuana (THC) Screen Negative (NEGATIVE) Other X-Ray Diagnostic Results Other X-Ray Diagnostic Results : X-Ray ordered: Lumbar spine # of Views/Limited Vs Complete: 3 View Indication: Pain EP Interpretation: Yes Interpretation: no dislocation, no soft tissue swelling, no fractures, other - Right-sided plate with separation, DJD, no malalignment Impression: Other Electronically Signed by: Electronically signed by Jackson Easley MD Last Vital Signs Date Time Temp Pulse Resp B/P (MAP) Pulse Ox O2 Delivery O2 Flow Rate FiO2 07/07/19 16:50 98.3 82 18 136/84 96 Room Air Status: improved Disposition: HOME, SELF-CARE Condition: Improved Scripts Methocarbamol* (ROBAXIN-500*) 500 Mg Tablet 500 MG ORAL TID PRN for For Pain, #15 TAB 0 Refills Prov: Jackson Easley MD 07/07/19 Ibuprofen* (MOTRIN*) 600 Mg Tablet 600 MG ORAL Q6H PRN for For Pain, #20 TAB 0 Refills Prov: Jackson Easley MD 07/07/19 Jackson Easley MD Jul 07, 2019 15:23
[2019-07-07 15:34] LABS: APPEARANCE,URINE SLIGHTLY CLOUDY; BILIRUBIN, URINE NEGATIVE (NEGATIVE); GLUCOSE, URINE (UA) NEGATIVE (NEGATIVE); KETONES,URINE 1+ (NEGATIVE); LEUKOCYTE ESTERASE ,URINE 1+ (NEGATIVE); NITRITE,URINE NEGATIVE (NEGATIVE); PH,URINE 6 (4.5-8.0); PROTEIN,URINE NEGATIVE (NEGATIVE); UROBILINOGEN,URINE 4 MG/DL (0.0-1.0)
[2019-07-07 15:37] LABS: COLOR,URINE YELLOW
[2019-07-07] MEDS ORDERED: IBUPROFEN600 MG ORAL (16:48)
[2019-07-07] MEDS ORDERED: ROBAXIN-500MG ORAL (16:48)
[2019-07-07 16:50] VITALS: BP 136/84
--- NOTE | 2019-07-08 17:04 | Diagnostic Imaging Report ---
Indication: Back pain Comparison: None Findings: 3 views of the lumbar spine were obtained. 4 level spinal fusion noted posteriorly with fusion rods and pedicle screws L3-S1. There is a fracture of the right fusion sirisha at its midportion between L4-5. Degenerative changes of the spine are noted with the narrowing of intervertebral discs, some disc calcification and endplate osteophyte formation. Diffuse sclerosis of the facets also demonstrated. IMPRESSION: Hardware malfunction with fracture of the right fusion sirisha. Patient is status post multilevel lumbar fusion posteriorly from L3 through S1. Degenerative changes as described above
== END 2019-07-07 16:50 | disposition home or self-care (01) ==
LOC: EMR 15:26
DX: M54.5 Low back pain (principal); M62.830 Muscle spasm of back; Z88.6 Allergy status to analgesic agent; F17.200 Nicotine dependence, unspecified, uncomplicated; M06.9 Rheumatoid arthritis, unspecified; Z86.19 Personal history of other infectious and parasitic diseases; Z98.1 Arthrodesis status
CPT/HCPCS: 72020; 80307; 81003; 96372; 99283

== ENCOUNTER 2020-09-18 13:19 | Emergency (ER) | payer MEDICARE, OTHER ==
[~2020-09-18] VITALS: Ht 165.1 cm; Wt 108.9 kg
[~2020-09-18 13:19] MED LIST changes: +AMOXICILLIN125 MG ORAL; +AZITHROMYCIN500 MG ORAL; +GABAPENTIN100 MG ORAL; +MELOXICAM15 MG PO; +ROBAXIN-500MG ORAL
[2020-09-18 13:49] VITALS: BP 133/79
[2020-09-18] MEDS: Ketorolac 30mg Inj IM ONE (14:04)
--- NOTE | 2020-09-18 14:05 | Emergency Room Report ---
History of Present Illness General Chief Complaint: Back Pain-No Injury Source: Medical Record Present Illness HPI 65 YO female presents to the ED c/o 05/23 in severity exacerbation of her chronic right sided low back pain. Pt. reports progressive onset x 1 week. She reports last night unable to sleep due to pain. She denies acute trauma or falls. Pt. reports hx of displaced L -spine fusion sirisha which surgical revision has been deferred due to current COVID-19 pandemic. Pt. reports she is still being managed by homero management and following up with a spinal specialist. She reports taking her regularly rx'd 10mg Anderson without relief of her symptoms. She denies fevers or chills. She denies abdominal pain, urinary frequency, dysuria, or hematuria. She denies incontinence or urinary retention.She denies abdominal pain or tenderness. She denies COSTELLO or neck pain/stiffness. She denies numbness or tingling. She reports pain will radiate to the right glute with certain movements. She reports laying flat exacerbates her symptoms and sitting upright and 90 degree angle help to decrease her symptoms. No other aggravating or relieving factors at this time. 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 Patient History Past Medical History: see triage record Now: No Reviewed Nursing Documentation: PMH: Agreed; PSxH: Agreed Nursing Documentation-PMH Past Medical History: No History, Except For Hx Cardiac Problems: No - Sleep apnea Hx Hypertension: No Hx Pacemaker: No Hx Asthma: Yes - Bronchitis Hx COPD: Yes Hx Diabetes: No Hx Cancer: No Hx Gastrointestinal Problems: Yes - Hepaitits C, Rheumatoid Arthritis Hx Dialysis: No Hx Neurological Problems: No - SPINAL SURGERY 2003 Hx Cerebrovascular Accident: No Hx Seizures: No Review of Systems All Other Systems: negative except mentioned in HPI Physical Exam Vital Signs Date Time Temp Pulse Resp B/P (MAP) Pulse Ox O2 Delivery O2 Flow Rate FiO2 09/18/20 13:28 98.4 86 17 147/82 (103) 95 Room Air Sp02 EP Interpretation: reviewed, normal General Appearance: no apparent distress, alert, GCS 15, non-toxic, obese Head: normocephalic, atraumatic Eyes: bilateral eye normal inspection, bilateral eye PERRL ENT: hearing grossly normal, normal voice Neck: full range of motion Respiratory: chest non-tender, lungs clear, normal breath sounds, speaking full sentences Cardiovascular #1: regular rate, rhythm Gastrointestinal: normal bowel sounds, non tender, soft Genitourinary: normal inspection, no CVA tenderness Musculoskeletal: gait/station normal - slightly bent forward gait. , tender - TTP to the Right Lumbar paraspinal musculature and right upper glute. Surgical scar noted, no erythema, warmth or bruising. , other - Surgical scar in the Lumbar area. Neurologic: alert, motor strength/tone normal, distal neuro normal, oriented x3, sensory intact, responsive, speech normal, grossly normal, no focal defects Psychiatric: judgement/insight normal Skin: no rash, normal color Medical Decision Making PA Attestation Dr. Garnett is my supervising Physician whom patient management has been discussed with. Diagnostic Impression: Primary Impression: Back pain Qualified Codes: M54.41 - Lumbago with sciatica, right side; G89.29 - Other chronic pain ER Course Pt. presents to ED c/o LBP. Ddx considered: epidural abscess, fracture, sprain/strain, meningitis, spinal chord injury, sciatica, cauda equina, Pyelonephritis, renal calculi just to name a few. Vital signs reviewed and are WNL during ED visit. Pt. is afebrile with no signs of infection No new symptoms, and denies recent trauma. No saddle anesthesia noted, Pt. denies incontinence Neurovascular is intact ROM is limited due to pain * Mild Tenderness to palpation to paraspinal muscles of the lower back with midline tenderness. *Pt. describes pain today as moderate and radiates across the lower back. ORDERS: -L-Spine X-ray -UA: WNL INTERVENTIONS: - 30mg IM Toradol -350mg SOMA PO D/W Pt. that for further pain management is it recommended to consult PCP or a Chronic Pain management doctor. A provider who can safely prescribe controlled substances with close follow up. DISCHARGE: At this time pt. is stable for d/c to home. Will provide printed patient care instructions, and any necessary prescriptions. Care plan and follow up instructions have been discussed with the patient prior to discharge. Labs Test 09/18/20 14:17 Urine Color Pale yellow Urine Appearance Clear Urine pH 7 (4.5-8.0) Urine Specific [place] 1.005 (1.005-1.035) Urine Protein Negative (NEGATIVE) Urine Glucose (UA) Negative (NEGATIVE) Urine Ketones Negative (NEGATIVE) Urine Blood Negative (NEGATIVE) Urine Nitrite Negative (NEGATIVE) Urine Bilirubin Negative (NEGATIVE) Urine Urobilinogen Normal MG/DL (0.0-1.0) Urine Leukocyte Esterase Negative (NEGATIVE) Other X-Ray Diagnostic Results Other X-Ray Diagnostic Results : X-Ray ordered: L Spine # of Views/Limited Vs Complete: 3 View Indication: Pain EP Interpretation: Yes PA Xray: Interpretation reviewed, by supervising MD, and agrees with findings. Interpretation: no dislocation, no soft tissue swelling, no fractures, other - surgical hardware: broken sirisha on the right Impression: Other - surgical hardware: broken sirisha on the right Electronically Signed by: Edith Ramirez PA-C Last Vital Signs Date Time Temp Pulse Resp B/P (MAP) Pulse Ox O2 Delivery O2 Flow Rate FiO2 09/18/20 13:49 80 24 133/79 98 Room Air 09/18/20 13:28 98.4 Disposition: HOME, SELF-CARE Condition: Stable Scripts Methocarbamol* (ROBAXIN-500*) 500 Mg Tablet 500 MG ORAL QID PRN for For Pain, #20 TAB 0 Refills Prov: Edith Ramirez 09/18/20 Ibuprofen* (MOTRIN*) 600 Mg Tablet 600 MG ORAL THREE TIMES A DAY, #20 TAB Prov: Edith Ramirez 09/18/20 Referrals: NON PHYSICIAN (PCP) Edith Ramirez Sep 18, 2020 14:05
[2020-09-18 15:33] LABS: BILIRUBIN, URINE NEGATIVE (NEGATIVE); COLOR,URINE PALE YELLOW; GLUCOSE, URINE (UA) NEGATIVE (NEGATIVE); KETONES,URINE NEGATIVE (NEGATIVE); LEUKOCYTE ESTERASE ,URINE NEGATIVE (NEGATIVE); NITRITE,URINE NEGATIVE (NEGATIVE); PH,URINE 7 (4.5-8.0); PROTEIN,URINE NEGATIVE (NEGATIVE); UROBILINOGEN,URINE NORMAL MG/DL (0.0-1.0)
[2020-09-18 15:34] LABS: APPEARANCE,URINE CLEAR
[2020-09-18] MEDS ORDERED: ROBAXIN-500MG ORAL (15:39)
[2020-09-18] MEDS ORDERED: IBUPROFEN600 M1 ORAL (15:39)
[2020-09-18 16:04] VITALS: BP 133/73
--- NOTE | 2020-09-18 16:23 | Diagnostic Imaging Report ---
Indications: Back pain Technique: 3 views of the lumbar spine Comparison: 07/07/2019 Findings: Again demonstrated transitional lumbosacral anatomy. Again demonstrated is anterior fusion hardware ridging the lower lumbar spine and sacrum. There is a fracture of the sirisha on the right, also evident previously. No acute fracture. Bony alignment is normal. Vertebral body heights are preserved. There are extensive degenerative proliferative changes again demonstrated. Findings are unchanged Impression: Postsurgical and degenerative changes as described. No acute bony trauma
== END 2020-09-18 16:05 | disposition home or self-care (01) ==
LOC: EMR 13:43
DX: G89.29 Other chronic pain (principal); M54.41 Lumbago with sciatica, right side; J44.9 Chronic obstructive pulmonary disease, unspecified; J45.909 Unspecified asthma, uncomplicated; G47.30 Sleep apnea, unspecified; Z88.5 Allergy status to narcotic agent
CPT/HCPCS: 72020; 81003; 96372; 99283; J1885